=== PATIENT | female | born 1955 | race Caucasian/White ===

== ENCOUNTER 2017-08-31 13:32 | Emergency (ER) | payer SELFPAY ==
[~2017-08-31] VITALS: Ht 172.7 cm; Wt 68.0 kg
[2017-08-31 14:15] VITALS: BP 155/80; PULSE 74; RESP 20; TEMP 98.5; O2SAT 98
[2017-08-31] MEDS ORDERED: NYST1OIN TOPICAL (16:35)
--- NOTE | 2017-08-31 16:35 | PD ---
HPI Chief Complaint: Skin Problem Time Seen by Provider: 16:16 Travel History International Travel<30 days: No Contact w/Intl Traveler<30days: No Traveled to known affect area: No History of Present Illness HPI Patient has noted lesions that initially were to the palm of her hand, they eventually dried out and her skin sloughed off but she still has the remnants of the rash over her left palm. Over the last few days she has developed this redness over the dorsum of her left fourth and fifth digit, patient denies any fever, nausea, vomiting. The patient comes in because she has been unable to remove her wedding ring despite using lubricants and using ice to try decreased swelling PFSH Social History Tobacco Use: No Allergies-Medications (Allergen,Severity, Reaction): Coded Allergies: cephalexin (Verified Allergy, Severe, Hives, 08/31/17) Reported Meds & Prescriptions Reported Meds & Active Scripts Active Nystatin-Triamcinolone 100,000-0.1 Unit/Gm Oint 1 Applic TOPICAL Q12HR Review of Systems General / Constitutional: No: Fever Eyes: No: Visual changes HENT: No: Headaches Cardiovascular: No: Chest Pain or Discomfort Respiratory: No: Shortness of Breath Gastrointestinal: No: Abdominal Pain Genitourinary: No: Dysuria Musculoskeletal: No: Pain Skin: Positive Rash Neurologic: No: Weakness Psychiatric: No: Depression Endocrine: No: Polydipsia Hematologic/Lymphatic: No: Easy Bruising Physical Exam Narrative GENERAL: SKIN: Warm and dry. Erythematous plaque-like lesion noted over the dorsum of the left fourth and fifth MCP extending into the proximal phalanx, no weeping no discharge no streaking or lymphadenopathy noted HEAD: Atraumatic. Normocephalic. EYES: Pupils equal and round. No scleral icterus. No injection or drainage. ENT: No nasal bleeding or discharge. Mucous membranes pink and moist. NECK: Trachea midline. No JVD. CARDIOVASCULAR: Regular rate and rhythm. RESPIRATORY: No accessory muscle use. Clear to auscultation. Breath sounds equal bilaterally. GASTROINTESTINAL: Abdomen soft, non-tender, nondistended. Hepatic and splenic margins not palpable. MUSCULOSKELETAL: Extremities without clubbing, cyanosis, or edema. No obvious deformities. NEUROLOGICAL: Awake and alert. No obvious cranial nerve deficits. Motor grossly within normal limits. Five out of 5 muscle strength in the arms and legs. Normal speech. PSYCHIATRIC: Appropriate mood and affect; insight and judgment normal. 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 Next up will be the skin condition that was noted which is most peculiar for tenia corporis and will be treated with nystatin triamcinolone cream, patient is referred to dermatology for formal biopsy and diagnosis of this condition that appears to have been present for chronic time of about a year and a half already. 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
== END 2017-08-31 17:24 | disposition home or self-care (01) ==
LOC: NEPD 13:32
DX: B35.4 Tinea corporis (principal); T14.8XXA Other injury of unspecified body region, initial encounter; W49.04XA Ring or other jewelry causing external constriction, initial encounter
CPT/HCPCS: 99283